=== PATIENT | female | born 1985 | race Caucasian/White ===

== ENCOUNTER 2018-04-13 09:17 | Outpatient (CLI) | END 2018-04-13 12:35 | disposition home or self-care (01) ==

== ENCOUNTER 2018-04-23 09:09 | Outpatient (CLI) | END 2018-04-23 11:48 | disposition home or self-care (01) ==

== ENCOUNTER 2018-05-08 20:02 | Inpatient (IN) | END 2018-05-11 16:25 | disposition home or self-care (01) | DRG 807 ==